=== PATIENT | female | born 2000 | race Caucasian/White ===

== ENCOUNTER 2021-10-19 21:09 | Emergency (ER) | payer MEDICAID, SELFPAY ==
[~2021-10-19] VITALS: Ht 162.6 cm; Wt 87.0 kg
[2021-10-19 21:21] VITALS: BP 105/67
[2021-10-19] MEDS ORDERED: ACETAMINOPHEN 325MG TABLET PO ONE (22:30)
[2021-10-19] MEDS ORDERED: TOPUD MT (23:50)
[2021-10-19] MEDS ORDERED: IBUP-2029 MT (23:50)
== END 2021-10-20 00:51 | disposition home or self-care (01) ==
LOC: ER 21:09
DX: M79.661 Pain in right lower leg (principal); V43.62XA Car passenger injured in collision with other type car in traffic accident, initial encounter; Y93.89 Activity, other specified; Y92.488 Other paved roadways as the place of occurrence of the external cause
CPT/HCPCS: 73502; 73552; 73562; 73590; 73610; 73630; 81025; 99284